=== PATIENT | male | born 1955 | race Caucasian/White ===

== ENCOUNTER 2022-03-21 01:07 | Day surgery (SDC) | payer MEDICARE, SELFPAY ==
[2022-03-14 14:46] VITALS: BMI 29.2
--- NOTE | 2022-03-20 17:08 | PM.HPGS ---
History of Present Illness History of Present Illness Consent: Risks, benefits, and alternatives have been discussed and questions answered. Patient agrees to proceed with procedure. Chief complaint: hx of colon polyps Narrative: Herve Iniguez is a 66 year old male Referred for colon cancer screening. He has a history of polyps. Ten years ago he had a polyp removed. Review of Systems Review of Systems: All systems reviewed & are unremarkable except as noted in HPI and below PMFSH Past Medical History Medical History Dyslipidemia Essential (primary) hypertension History of depression Overweight (BMI 25.0-29.9) Family History Family History Mother Family history of rheumatoid arthritis Other Diabetes mellitus Social History Social History Smoking status: Never smoker Second hand tobacco smoke exposure: No Alcohol intake: current Alcohol use details: socially Substance use: never Substance use type: does not use Lack of Transportation: No Lack of Food: Never True Current Housing: I Have Housing Concerned About Future Housing: No Difficulty Paying Gas/Electric Bills: No Difficulty Paying for Meds: No Currently Unemployed: No Education: Bachelor's Degree Difficulty w/ Childcare or Family Care: No Living arrangements: with family Additional living arrangements comments: Gender identity (if verbalized by the patient): Male Sexual Orientation (if Verbalized by the Patient): Straight or Heterosexual Spiritual care concerns: No Agree to blood products: Yes Meds Home Medications and Allergies Home Medications Medication Instructions Recorded Confirmed Type amlodipine 10 mg tablet 10 mg PO DAILY #90 tabs 12/18/21 03/21/22 Rx ezetimibe 10 mg tablet (Zetia) 10 mg PO DAILY #90 tabs 12/18/21 03/21/22 Rx cholecalciferol (vitamin D3) 50 50 mcg PO DAILY 02/04/22 03/21/22 History mcg (2,000 unit) capsule echinacea 400 mg capsule 400 mg PO TID 02/04/22 03/21/22 History krill oil 500 mg capsule 500 mg PO .QD 02/04/22 03/21/22 History lactobacillus combination no.9 4 4,000 mmu cells PO DAILY 02/04/22 03/21/22 History billion cell capsule (Adult 50 Plus Probiotic) magnesium 200 mg tablet 400 mg PO DAILY 02/04/22 03/21/22 History multivitamin (Daily Multi-Vitamin 1 tablet PO DAILY 02/04/22 03/21/22 History tablet) vitamin B complex (B 1 tablet PO DAILY 02/04/22 03/21/22 History Complex-Vitamin B12 tablet) Allergies Allergy/AdvReac Type Severity Reaction Status Date / Time Penicillins Allergy Unknown Anaphylaxis Verified 03/21/22 08:11 Exam Const: General: alert Orientation/consciousness: patient oriented x3 Resp: Auscultation: clear to auscultation bilaterally Cardio: Rhythm: regular rhythm GI: GI Palp: Yes Soft to palpation and No Tenderness to palpation present (GI) Neuro: General: patient oriented x3 Assessment and Plan Assessment and plan (1) Colon cancer screening: Code(s): Z12.11 - Encounter for screening for malignant neoplasm of colon Status: Acute Assessment and Plan: Colonoscopy with possible biopsy or polypectomy or cautery or injection of substances.
--- NOTE | 2022-03-21 07:59 | WPDANESEPPF ---
Anes - Initial Pre Proc Eval Procedure: Operation Date: 03/21/22 09:00 Proposed Procedures p Screening Colonoscopy - Brayden Johnson MD Date/Time: 03/21/22 07:59 Surgeon: Brayden Johnson MD Pre Op Diagnosis: hx of colon polyps Patient Data Age: 66 Gender: M Height: 1.83 m Weight: 98 kg Allergies Allergy/AdvReac Type Severity Reaction Status Date / Time Penicillins Allergy Unknown Anaphylaxis Verified 03/21/22 08:11 Home Medications Medication Instructions Recorded Confirmed Type amlodipine 10 mg tablet 10 mg PO DAILY #90 tabs 12/18/21 03/21/22 Rx ezetimibe 10 mg tablet (Zetia) 10 mg PO DAILY #90 tabs 12/18/21 03/21/22 Rx cholecalciferol (vitamin D3) 50 50 mcg PO DAILY 02/04/22 03/21/22 History mcg (2,000 unit) capsule echinacea 400 mg capsule 400 mg PO TID 02/04/22 03/21/22 History krill oil 500 mg capsule 500 mg PO .QD 02/04/22 03/21/22 History lactobacillus combination no.9 4 4,000 mmu cells PO DAILY 02/04/22 03/21/22 History billion cell capsule (Adult 50 Plus Probiotic) magnesium 200 mg tablet 400 mg PO DAILY 02/04/22 03/21/22 History multivitamin (Daily Multi-Vitamin 1 tablet PO DAILY 02/04/22 03/21/22 History tablet) vitamin B complex (B 1 tablet PO DAILY 02/04/22 03/21/22 History Complex-Vitamin B12 tablet) Patient hx anesthesia problems: none Family hx anesthesia problems: none Results Review: All pre-operative results and documents have been reviewed as part of the pre-operative evaluation. [facility] Past Medical History Medical History (Updated 03/21/22 @ 07:59 by Mario Dugan MD) Dyslipidemia Essential (primary) hypertension History of depression Overweight (BMI 25.0-29.9) Family History Family History Mother Family history of rheumatoid arthritis Other Diabetes mellitus Social History Social History Smoking status: Never smoker Second hand tobacco smoke exposure: No Alcohol intake: current Alcohol use details: socially Substance use: never Substance use type: does not use Lack of Transportation: No Lack of Food: Never True Current Housing: I Have Housing Concerned About Future Housing: No Difficulty Paying Gas/Electric Bills: No Difficulty Paying for Meds: No Currently Unemployed: No Education: Bachelor's Degree Difficulty w/ Childcare or Family Care: No Living arrangements: with family Additional living arrangements comments: Gender identity (if verbalized by the patient): Male Sexual Orientation (if Verbalized by the Patient): Straight or Heterosexual Spiritual care concerns: No Agree to blood products: Yes Anes - Eval Final PreProcedure Day of Procedure 03/21/22 07:59 Patient weight: overweight Heart: regular rate and rhythm Lungs: clear to auscultation and normal air movement Airway: Mallampati scale class II Neurological: alert and oriented Last oral intake: >/= 8 hours ASA classification: II Emergent: no Anesthetic plan: proceed Anesthesia type and monitoring: general GIVS Results Review: All pre-operative results and documents have been reviewed as part of the pre-operative evaluation. Informed Consent: The patient's anesthetic plan and its attendant risks and benefits were discussed with the patient/family/POA. Questions were solicited and answers provided to the satisfaction of the patient/family/POA.
[2022-03-21 08:04] VITALS: BP 155/93; PULSE 92; RESP 20; TEMP 36.7; O2SAT 98
[2022-03-21] MEDS: LACTATED RINGERS 1,000 ML 150 ML IV CONT (08:22)
[2022-03-21 09:16] VITALS: BP 97/66; PULSE 65; RESP 15; O2SAT 97
[2022-03-21 09:26] VITALS: BP 118/84; PULSE 69; RESP 17; O2SAT 96
[2022-03-21 09:36] VITALS: BP 128/86; PULSE 63; RESP 16; O2SAT 97
== END 2022-03-21 09:46 | disposition home or self-care (01) ==
PROVIDERS: PCP Family Medicine; Visit Provider Internal Medicine Gastroenterology
PROC: 0DJD8ZZ Inspection of Lower Intestinal Tract, Via Natural or Artificial Opening Endoscopic (ICD-10-PCS; CPT 45378; principal; 2022-03-21 09:00)
DX: Z12.11 Encounter for screening for malignant neoplasm of colon (principal); K57.30 Diverticulosis of large intestine without perforation or abscess without bleeding; Z86.010 Personal history of colon polyps; I10 Essential (primary) hypertension; E78.5 Hyperlipidemia, unspecified
CPT/HCPCS: G0105; J2704; J7120

== ENCOUNTER 2022-08-13 08:55 | Outpatient (CLI) | payer MEDICARE, SELFPAY ==
[2022-08-13 14:08] LABS: Alanine Aminotransferase 25 U/L (6-50); Albumin Level 4.4 g/dL (3.5-5.1); Alkaline Phosphatase 50 U/L (38-126); Anion Gap 6 mmol/L (8-16); Aspartate Amino Transferase 54 U/L (17-59); Bilirubin,Total 0.7 mg/dL (0.2-1.3); Blood Urea Nitrogen 17 mg/dL (9-20); Calcium 9.3 mg/dL (8.4-10.2); Carbon Dioxide 28 mmol/L (22-30); Chloride 103 mmol/L (98-107); Estimated Glomerular Filt Rate > 60; Glucose 106 mg/dL (65-110); Potassium 4.3 mmol/L (3.4-5.0); Sodium 137 mmol/L (137-145)
== END 2022-08-13 08:56 | disposition home or self-care (01) ==
LOC: ANHGOSHLAB 08:58
PROVIDERS: PCP Family Medicine; Visit Provider Family Medicine
DX: E78.5 Hyperlipidemia, unspecified (principal); I10 Essential (primary) hypertension
CPT/HCPCS: 36415; 80053